=== PATIENT | female | born 1980 | race Caucasian/White ===

== ENCOUNTER → 2022-12-01 | Outpatient (CLI) | payer BC ==
--- NOTE | 2022-12-09 08:22 | MM ---
Reason for Exam: Screening (asymptomatic). Last mammogram was performed 2 year(s) and 11 month(s) ago. Patient History: Menarche at age 13. First Full-Term at age 18. Last menstrual period: 12/01/2022 Risk Values: Jessica 5 year model risk: 0.5%. NCI Lifetime model risk: 6.5%. Prior Study Comparison: 12/05/2019 Bilateral Screening Mammogram, [facility]. Tissue Density: The breast tissue is heterogeneously dense. This may lower the sensitivity of mammography. Findings: Analyzed By CAD. Left breast: Grouped calcifications middle depth posterior nipple line on MLO view and slightly lateral on CC view approximately 6-7 cm from the nipple. Right breast: There is no suspicious group of microcalcifications or new suspicious mass in either breast. Overall Assessment: Incomplete: need additional imaging evaluation, BI-RAD 0 Management: Diagnostic Mammogram of the left breast. [facility] will attempt to contact patient to return for supplemental views and ultrasound if indicated. Patient should continue monthly self-breast exams. A clinical breast exam by your physician is recommended on an annual basis. This exam should not preclude additional follow-up of suspicious palpable abnormalities. Note on Jessica scores and lifetime risk: 1. A Jessica score greater than 3% is considered moderate risk. If this is the case, consider specialist referral to assess eligibility for a risk reducing agent. 2. If overall lifetime risk for the development of breast cancer is 20% or higher, the patient may qualify for future screening with alternating mammogram and breast MRI. Electronically signed and approved by: Guillermo Sauer DO
== END | disposition home or self-care (01) ==
LOC: RADMAMWWP 16:30
PROVIDERS: ATTEND Family Medicine
DX: Z12.31 Encounter for screening mammogram for malignant neoplasm of breast (principal)
CPT/HCPCS: 77063; 77067

== ENCOUNTER → 2022-12-11 | Outpatient (CLI) | payer BC ==
--- NOTE | 2022-12-11 15:27 | MM ---
Reason for Exam: Additional evaluation requested from abnormal screening. Last screening mammogram was performed less than 1 month ago. Patient History: Menarche at age 13. First Full-Term at age 18. Risk Values: Jessica 5 year model risk: 0.5%. NCI Lifetime model risk: 6.5%. Prior Study Comparison: 12/05/2019 Bilateral Screening Mammogram, [facility]. 12/01/2022 Bilateral MG 3D screening mammo w/cad, [facility]. Tissue Density: Left: The breast tissue is heterogeneously dense. This may lower the sensitivity of mammography. Findings: Analyzed By CAD. There are benign coarse calcifications within the left breast. There are a few segmental very fine punctate calcifications within the left breast upper outer aspect. Suspicious clustered calcifications is not evident. Short-term follow-up including magnification views is recommended in 6 months left breast No suspicious groups of microcalcifications, spiculated or lobular masses, architectural distortion or other secondary signs of malignancy are mammographically apparent. Overall Assessment: Probably benign, BI-RAD 3 Management: Diagnostic Mammogram of the left breast in 6 months. A negative mammogram report should not preclude additional follow up of suspicious palpable abnormalities. Patient should continue monthly self breast exam. A clinical breast exam by your physician is recommended on an annual basis and results should be correlated with mammographic findings. Electronically signed and approved by: Jesus Luke D.O. Radiologis
== END | disposition home or self-care (01) ==
LOC: RADMAMWWP 13:44
PROVIDERS: ATTEND Family Medicine
DX: R92.1 Mammographic calcification found on diagnostic imaging of breast (principal)
CPT/HCPCS: 77061; 77065

== ENCOUNTER 2023-02-09 11:19 | Day surgery (SDC) | payer BC ==
--- NOTE | 2023-02-08 11:01 | P.HPOB ---
History of Present Illness H&P Date: 02/08/23 Chief Complaint: Menorrhagia with regular cycle This is a 42 y.o. female, 3, para 3, who presents for dilatation and curettage with hysteroscopy and Novasure endometrial ablation due to menorrhagia with regular cycle. She complains of heavy menses lasting 5 days despite oral contraceptives. Pelvic ultrasound shows uterus measuring 8.3 x 6.5 x 5 cm with endometrium measuring 3 mm. Multiple fibroids, subserosal and intramural, are noted, largest 3 cm on left. OB Hx: . History of 3 vaginal deliveries. [employer] Hx: History of chlamydia, treated years ago. Has history of tubal ligation. Social Hx: . Works for [employer]. Review of Systems Constitutional: Reports fatigue, Denies chills, Denies fever Eyes: denies blurred vision, denies pain Ears, nose, mouth and throat: Denies headache, Denies sore throat Cardiovascular: Denies chest pain, Denies shortness of breath Respiratory: Denies cough Gastrointestinal: Denies abdominal pain, Denies diarrhea, Denies nausea, Denies vomiting Genitourinary: Reports dysmenorrhea, Reports menorrhagia Menstruation: Reports period heavy Musculoskeletal: Denies myalgias Integumentary: Denies pruritus, Denies rash Neurological: Denies numbness, Denies weakness Psychiatric: Reports anxiety, Reports insomnia, Denies depression Past Medical History Past Medical History: Asthma, Cancer, GERD/Reflux, Hypertension Additional Past Medical History / Comment(s): Skin cancer History of Any Multi-Drug Resistant Organisms: None Reported Past Surgical History: Tubal Ligation Additional Past Surgical History / Comment(s): Transoral incisionless fundoplica tion; LEEP Past Anesthesia/Blood Transfusion Reactions: No Reported Reaction Past Psychological History: Anxiety Smoking Status: Never smoker Past Alcohol Use History: Occasional Past Drug Use History: None Reported - Past Family History Father Family Medical History: CVA/TIA Mother History Unknown: Yes Family Medical History: Unable to Obtain Medications and Allergies Home Medications Medication Instructions Recorded Confirmed Type FLUoxetine HCL [PROzac] 20 mg PO QAM 02/05/23 02/05/23 History Losartan [Cozaar] 50 mg PO QAM 02/05/23 02/05/23 History Omeprazole 20 mg PO QAM 02/05/23 02/05/23 History Levonorgestrel/Ethin.estradiol 1 each PO 02/08/23 History [Levora-28 Tablet] Allergies Allergy/AdvReac Type Severity Reaction Status Date / Time No Known Allergies Allergy Verified 02/05/23 09:10 Exam Osteopathic Statement: *. No significant issues noted on an osteopathic structural exam other than those noted in the History and Physical/Consult. HEENT: within normal limits Heart: regular rate and rhythm Lungs: clear to auscultation bilaterally Abdomen: soft, non-tender Pelvic: uterus anteverted, non-tender, no adnexal masses or tendernss Extremities: neg. Rustam's Assessment and Plan (1) Menorrhagia with regular cycle Status: Acute Code(s): N92.0 - EXCESSIVE AND FREQUENT MENSTRUATION WITH REGULAR CYCLE SNOMED Code(s): 100641723 Plan: Proceed with dilatation and curettage with hysteroscopy and Novasure endometrial ablation. I have discussed the risks, benefits, and alternative therapies for the above- mentioned procedure and for both sedation/anesthesia as well as necessary blood products administration, if indicated, as they pertain to this patient. The patient has indicated her understanding and acceptance of the risks and procedures discussed.
[~2023-02-09 11:19] MED LIST: DEXAMETHASONE SOD PHOSPHATE 4 MG/ML 1 ML VIAL IV ONE; HYDROmorphone 0.5 MG/0.5 ML SYRINGE IVP PRN; LACTATED RINGERS 1,000 ML IV SCH; LIDOCAINE 1% (10MG/ML) FOR IV START INTRADERMA PRN; METOCLOPRAMIDE 5 MG/ML 2 ML VIAL IVP PRN; ONDANSETRON 4 MG/2 ML VIAL IVP ONE; Pre Op ABX Message 1 EACH MISC MISCELLANE ONE
[2023-02-09] MEDS ORDERED: hydrALAZINE HCL 20 MG/ML 1 ML VIAL IVP ONE (12:27)
[2023-02-09] MEDS ORDERED: SUCCINYLCHOLINE CHLORIDE 200 MG/10 ML VIAL IV ONE (12:56)
[2023-02-09] MEDS ORDERED: KETOROLAC 15 MG/ML 1 ML VIAL ONE (12:56)
[2023-02-09] MEDS ORDERED: LIDOCAINE 1% INJ 10MG/ML (20 ML MDV) ONE (12:56)
[2023-02-09] MEDS ORDERED: PROPOFOL 10 MG/ML 20 ML VIAL IV ONE (12:56)
[2023-02-09] MEDS ORDERED: ePHEDrine 50 MG/ML 1 ML VIAL ONE (12:56)
[2023-02-09] MEDS ORDERED: MIDAZOLAM 2 MG/2 ML VIAL ONE (12:56)
[2023-02-09] MEDS ORDERED: fentaNYL (PF) 50 MCG/ML 2 ML AMP ONE (12:56)
[2023-02-09] MEDS ORDERED: GLYCOPYRROLATE 0.2 MG/ML 2 ML VIAL ONE (12:56)
--- NOTE | 2023-02-09 13:29 | P.OP ---
Date of Procedure: 02/09/23 Preoperative Diagnosis: Menorrhagia with regular cycle Postoperative Diagnosis: Same Procedure(s) Performed: Dilation and curettage with hysteroscopy and NovaSure endometrial ablation Anesthesia: CAMILLE Surgeon: Nanette Bright Estimated Blood Loss (ml): 5 Pathology: other (Endometrial curettings) Condition: stable Disposition: same day Indications for Procedure: This is a 42 y.o. female, 3, para 3, who presents for dilatation and curettage with hysteroscopy and Novasure endometrial ablation due to menorrhagia with regular cycle. She complains of heavy menses lasting 5 days despite oral contraceptives. Pelvic ultrasound shows uterus measuring 8.3 x 6.5 x 5 cm with endometrium measuring 3 mm. Multiple fibroids, subserosal and intramural, are noted, largest 3 cm on left. Operative Findings: Uterus is retroverted, sounded to 3 cm on her cervix and 9 cm on uterus. No adnexal masses are palpated. Upon hysteroscopy, no specific abnormalities are visualized. No polyps are visualized. Both tubal ostia are noted. A moderate amount of endometrial curettings are obtained. Description of Procedure: The patient is taken to the operating room. She is placed in the dorsal lithotomy position after general anesthesia was given. She is prepped and draped in the normal sterile fashion. Bladder is drained with a catheter and then removed. Pelvic exam is performed under anesthesia. Uterus is found to be retroverted with no adnexal masses. She is placed in slight Trendelenburg position. A right angle retractor is used to visualize the cervix. The anterior lip of the cervix is grasped with an Allis clamp. Cervix is sounded to 3 cm. Uterus is sounded to 9 cm. Cervix is gently dilated with Justice dilators until a hysteroscope could be passed. Hysteroscopy is performed using normal saline. The above noted findings are noted. Next a polyp forceps is introduced. And a minimal amount of tissue was obtained. Next medium-sized size sharp curette was placed. A moderate amount of endometrial curettings were obtained. Next NovaSure array was inserted into the endometrial cavity. Length was set at 6 cm and width was determined to be 2.5 cm. Next cavity assessment was completed and passed on the first try. Next NovaSure array was fired at 83 W for 61 seconds. Next the array was removed, inspected and then discarded. Next the hysteroscope was reinserted. Uniform charring was noted. Pictures were taken. Hysteroscope was removed. Allis clamp was removed from the anterior lip of the cervix. Minimal bleeding was noted. All other instruments removed from the vagina. Sponge counts were correct. Patient is taken to recovery room in stable condition.
[2023-02-09] MEDS ORDERED: ALBUTEROL NEBULIZED 2.5 MG/3 ML INHALATION ONE (13:40)
[2023-02-09 13:55] VITALS: TEMP 97
[2023-02-09 14:29] VITALS: RESP 16
[2023-02-09 15:01] VITALS: BP 162/85; PULSE 85
== END 2023-02-09 14:58 | disposition home or self-care (01) ==
LOC: OR 11:19
PROVIDERS: ATTEND Obstetrics & Gynecology
DX: D25.1 Intramural leiomyoma of uterus (principal); D25.2 Subserosal leiomyoma of uterus; I10 Essential (primary) hypertension; J45.909 Unspecified asthma, uncomplicated; K21.9 Gastro-esophageal reflux disease without esophagitis; Z79.3 Long term (current) use of hormonal contraceptives; Z85.828 Personal history of other malignant neoplasm of skin; Z79.899 Other long term (current) drug therapy
CPT/HCPCS: 81025; 88305; 58563; J2250; J0330; J0360; J1100; J2405; J2001; J3010; J1885; J2704

== ENCOUNTER → 2023-10-16 | Outpatient (CLI) | payer BC ==
--- NOTE | 2023-10-19 22:58 | MM ---
Reason for Exam: Additional evaluation requested from abnormal screening. Last screening mammogram was performed 11 month(s) ago. Patient History: Menarche at age 13. First Full-Term at age 18. Last menstrual period: 10/16/2023 Risk Values: Jessica 5 year model risk: 0.5%. NCI Lifetime model risk: 6.5%. Tissue Density: The breasts are heterogeneously dense, which may obscure small masses. Findings: Analyzed By CAD. The pattern is symmetrical. Benign calcification is within the left breast. Couple small benign-appearing calcifications are within the right breast. Within the right breast some very faint calcifications are adjacent to a benign-appearing round calcification. These are new from comparison. Additional workup with magnification views of the calcifications within the medial right craniocaudal view 4 centimeters from nipple is recommended. Left breast:No suspicious groups of microcalcifications, spiculated or lobular masses, architectural distortion or other secondary signs of malignancy are mammographically apparent. Overall Assessment: Incomplete: need additional imaging evaluation, BI-RAD 0 Management: Diagnostic Mammogram of the right breast. A negative mammogram report should not preclude additional follow up of suspicious palpable abnormalities. Patient should continue monthly self breast exam. A clinical breast exam by your physician is recommended on an annual basis and results should be correlated with mammographic findings. Note on Jessica scores and lifetime risk: 1. A Jessica score greater than 3% is considered moderate risk. If this is the case, consider specialist referral to assess eligibility for a risk reducing agent. 2. If overall lifetime risk for the development of breast cancer is 20% or higher, the patient may qualify for future screening with alternating mammogram and breast MRI. Electronically signed and approved by: Jesus Luke D.O. Radiologis
== END | disposition home or self-care (01) ==
LOC: RADMAMWWP 12:56
PROVIDERS: ATTEND Family Medicine
DX: R92.333 Mammographic heterogeneous density, bilateral breasts (principal); R92.8 Other abnormal and inconclusive findings on diagnostic imaging of breast
CPT/HCPCS: 77062; 77066

== ENCOUNTER 2024-02-02 10:15 | Day surgery (SDC) | payer BC ==
[2024-02-01 10:37] VITALS: BMI 24.8
[~2024-02-02 10:15] MED LIST changes: -DEXAMETHASONE SOD PHOSPHATE 4 MG/ML 1 ML VIAL IV ONE; -HYDROmorphone 0.5 MG/0.5 ML SYRINGE IVP PRN; -LACTATED RINGERS 1,000 ML IV SCH; -METOCLOPRAMIDE 5 MG/ML 2 ML VIAL IVP PRN; -ONDANSETRON 4 MG/2 ML VIAL IVP ONE; -Pre Op ABX Message 1 EACH MISC MISCELLANE ONE
[2024-02-02 10:49] VITALS: TEMP 97.8
[2024-02-02] MEDS: LACTATED RINGERS 1,000 ML IV SCH (10:57)
[2024-02-02] MEDS: IV FLUID CONTINUATION 1,000 ML IV ONE (10:57)
[2024-02-02] MEDS ORDERED: PROPOFOL 10 MG/ML 20 ML VIAL IV ONE (11:12)
--- NOTE | 2024-02-02 11:24 | P.PCN ---
Date of Procedure: 02/02/24 Procedure(s) Performed: BRIEF HISTORY: Patient is a 43-year-old, pleasant, white female skilled for an upper endoscopy as a part of evaluation of chronic epigastric pain for the last 1 year duration. Pain is mostly epigastric area associate with abdominal bloating and early satiety. Has occasional nausea but no emesis. She was treated with Prilosec and Pepcid with no relief. History of TIF procedure in 2018. She is in scheduled for an upper endoscopy to evaluate further. PROCEDURE PERFORMED: Esophagogastroduodenoscopy with biopsy. PREOPERATIVE DIAGNOSIS: Chronic epigastric pain and abdominal bloating of 1 year duration. IV sedation per anesthesia. PROCEDURE: After informed consent was obtained, the patient was brought into the endoscopy unit. IV sedation was administered by Anesthesia under continuous monitoring. Initially the Olympus GIF-140 video endoscope was inserted into the mouth. Esophagus intubated without any difficulty. It was gradually advanced into the stomach and duodenum and carefully examined. The bulb and the second part of the duodenum appeared normal. Biopsies were done from the duodenum to evaluate for celiac disease. The scope at this time was withdrawn to the stomach, adequately insufflated with air, and upon careful examination, mucosa of the antrum, had mild gastritis and biopsies were done from this area. Mucosa of the body, cardia and the fundus appeared normal. The scope was then withdrawn into the esophagus. The GE junction was located at 39 cm from the incisors. There is sutures noted in this area. The esophagus appeared normal. There were no erosions or ulcerations seen biopsies were done from the distal esophagus and the patient tolerated the procedure well. IMPRESSION: 1. Mild antral gastritis. 2. No evidence of esophagitis or peptic ulcer disease. RECOMMENDATIONS: The findings of this examination were discussed with the patient as well as her family. She was advised to follow-up with the biopsy results. She was seen in the office in 2 to 3 weeks..
[2024-02-02 11:46] VITALS: RESP 16
[2024-02-02 11:47] VITALS: BP 134/80; PULSE 56
== END 2024-02-02 12:14 | disposition home or self-care (01) ==
LOC: ORWHC2ENDO 10:15
PROVIDERS: ATTEND Internal Medicine Gastroenterology
DX: R10.13 Epigastric pain
CPT/HCPCS: 43239; 81025; 88305

== ENCOUNTER 2024-09-23 08:31 | Emergency (ER) | payer SELFPAY ==
[2024-09-23 09:11] LABS: Basophils # (A) 0.03 10*3/uL (0.00-0.10); Basophils % (A) 0.4 %; Eosinophils # (A) 0.12 10*3/uL (0.04-0.35); Eosinophils % (A) 1.5 %; HCT 48.1 % (37.2-46.3); HGB 15.7 g/dL (12.0-15.0); Lymphocytes # (A) 1.87 10*3/uL (0.90-5.00); Lymphocytes % (A) 24.1 %; MCH 27.4 pg (27.0-32.0); MCHC 32.6 g/dL (32.0-37.0); MCV 83.8 fL (80.0-97.0); Mean Platelet Volume 11.2 fL (9.5-12.2); Monocytes # (A) 0.59 10*3/uL (0.20-1.00); Monocytes % (A) 7.6 %; Neutrophils # (A) 5.14 10*3/uL (1.80-7.70); Neutrophils % (A) 66.3 %; Platelet Count 276 10*3/uL (140-440); RBC 5.74 10*6/uL (4.10-5.20); RDW 13.4 % (11.5-14.5); WBC 7.76 10*3/uL (4.50-10.00)
[2024-09-23 09:23] LABS: ALT 17 U/L (4-34); AST 19 U/L (14-36); African American GFR (CKD) 80 (>60 ml/min/1.73 sqM); Albumin 4.8 g/dL (3.5-5.0); Alkaline Phosphatase 65 U/L (38-126); Anion Gap 11 mmol/L; Blood Urea Nitrogen 27 mg/dL (7-17); Calcium 10.7 mg/dL (8.4-10.2); Carbon Dioxide 28 mmol/L (22-30); Chloride 99 mmol/L (98-107); Glucose 61 mg/dL (74-99); Magnesium 2.2 mg/dL (1.6-2.3); Non-African American GFR(CKD) 69 (>60 ml/min/1.73 sqM); Sodium 138 mmol/L (137-145); Total Bilirubin 0.4 mg/dL (0.2-1.3)
--- NOTE | 2024-09-23 09:28 | ED ---
General Adult HPI - General Chief complaint: Recheck/Abnormal Lab/Rx Stated complaint: Tingling of Face, Legs, Arms Time Seen by Provider: 09/23/24 08:47 Source: patient, RN notes reviewed, old records reviewed Mode of arrival: ambulatory Limitations: no limitations - History of Present Illness Initial comments: 44-year-old female presenting for evaluation of lightheadedness, diaphoresis, tingling throughout her face bilateral arms and legs. Patient had a recent hospital admission at [facility] for elevated blood pressure. She was started on multiple antihypertensive medications. She took those medications this morning. She has no complaints at the time my evaluation. She did not have any chest pain. No vomiting. She states she had significant workup performed and is not aware of any significant abnormalities besides the elevated blood pressure. - Related Data Home Medications Medication Instructions Recorded Confirmed Losartan/Hydrochlorothiazide 1 tab PO DAILY 02/01/24 02/02/24 [Losartan-Hctz 100-25 mg Tab] Allergies Allergy/AdvReac Type Severity Reaction Status Date / Time No Known Allergies Allergy Verified 09/23/24 08:39 Review of Systems ROS Statement: Those systems with pertinent positive or pertinent negative responses have been documented in the HPI. ROS Other: All systems not noted in ROS Statement are negative. Past Medical History Past Medical History: Asthma, Cancer, GERD/Reflux, Hypertension Additional Past Medical History / Comment(s): Skin cancer, BLOATING AND ABD PAIN History of Any Multi-Drug Resistant Organisms: None Reported Past Surgical History: Tubal Ligation, Uterine Ablation Additional Past Surgical History / Comment(s): Transoral incisionless fundoplication (TIF), LEEP, EGD Past Anesthesia/Blood Transfusion Reactions: No Reported Reaction Past Psychological History: Anxiety Smoking Status: Never smoker Past Alcohol Use History: Rare Past Drug Use History: None Reported - Past Family History Father Family Medical History: CVA/TIA Mother History Unknown: Yes Family Medical History: Unable to Obtain General Exam Limitations: no limitations General appearance: alert, in no apparent distress Head exam: Present: atraumatic, normocephalic Eye exam: Present: normal appearance, PERRL ENT exam: Present: normal exam Neck exam: Present: normal inspection. Absent: tenderness, meningismus Respiratory exam: Present: normal lung sounds bilaterally. Absent: respiratory distress, wheezes Cardiovascular Exam: Present: regular rate, normal rhythm GI/Abdominal exam: Present: soft. Absent: distended, tenderness, guarding Neurological exam: Present: alert, oriented X3, CN II-XII intact. Absent: motor sensory deficit Psychiatric exam: Present: normal affect, normal mood Skin exam: Present: warm, dry, intact. Absent: cyanosis, diaphoretic Course Vital Signs 09/23/24 09/23/24 09/23/24 08:37 09:00 09:20 Temperature 97.7 F Pulse Rate 58 L 54 L Respiratory 20 16 Rate Blood Pressure 173/113 141/87 155/87 O2 Sat by Pulse 99 98 Oximetry 09/23/24 10:04 Temperature 98.3 F Pulse Rate 54 L Respiratory 16 Rate Blood Pressure 137/83 O2 Sat by Pulse 99 Oximetry - Reevaluation(s) Reevaluation #1: 09/23/24 10:46 Patient reevaluated, no further symptoms no complaints. Medical Decision Making - Medical Decision Making Was pt. sent in by a medical professional or institution (, PA, NOODLE CATALYST MAKER, urgent care, hospital, or correction...) When possible be specific @ -No Did you speak to anyone other than the patient for history (EMS, parent, family, police, friend...)? What history was obtained from this source @ -No Did you review nursing and triage notes (agree or disagree)? Why? @ -I reviewed and agree with nursing and triage notes Were old charts reviewed (outside hosp., previous admission, EMS record, old EKG, old radiological studies, urgent care reports/EKG's, correction records)? Report findings @ -No old charts were reviewed Differential Syncope: Valvular disease, hypertrophic cardiomyopathy, pulmonary embolism, tamponade, tachycardia, bradycardia, AR, hypovolemia, hemorrhage, dissection, anemia, intracranial hemorrhage, seizure, hypoglycemia, carbon monoxide poisoning, this is not meant to be an all-inclusive list. EKG interpreted by me (3pts min.). @EKG: Sinus bradycardia rate of 53 ST segment depression and T wave abnormality within the precordial leads and lateral leads IN interval 160, QRS duration 88, QTc 449. No old for comparison, records are being obtained from outside hospital. Repeat EKG at 1027, sinus bradycardia, left ventricular hypertrophy, rate of 55, IN interval 145, QRS duration 90, QTc 455 similar T wave abnormality compared to previous EKG. Both of these EKGs are compared to EKG from [facility] on 520 with similar T wave abnormality. X-rays interpreted by me (1pt min.). @ -[Chest x-ray is clear CT interpreted by me (1pt min.). @ -None done U/S interpreted by me (1pt. min.). @ -None done What testing was considered but not performed or refused? (CT, X-rays, U/S, labs)? Why? @ -None What meds were considered but not given or refused? Why? @ -None Did you discuss the management of the patient with other professionals (professionals i.e. DrOsiel, PA, NOODLE CATALYST MAKER, lab, RT, psych nurse, social media designer, construction trench digger, teacher, flight communications officer, manager of case)? Give summary @ -No Was smoking cessation discussed for >3mins.? @ -No Was critical care preformed (if so, how long)? @ -No Were there social determinants of health that impacted care today? How? (Homelessness, low income, unemployed, alcoholism, drug addiction, transportation, low edu. Level, literacy, decrease access to med. care, half-way, rehab)? @ -No Was there de-escalation of care discussed even if they declined (Discuss DNR or withdrawal of care, Hospice)? DNR status @ -No What co-morbidities impacted this encounter? (DM, HTN, Smoking, COPD, CAD, Cancer, CVA, ARF, Chemo, Hep., AIDS, mental health diagnosis, sleep apnea, mor bid obesity)? @ -[Hypertension with recent hospital admission for elevated blood pressure started on several new medications. Was patient admitted / discharged? Hospital course, mention meds given and route, prescriptions, significant lab abnormalities, going to OR and other pertinent info. @ -44-year-old female with an episode of elevated blood pressure hand diffuse paresthesia similar to 3 days prior where she was seen at outside hospital and had noted to significantly elevated blood pressure. Patient is feeling improved at the time of this evaluation and essentially remains asymptomatic while in the emergency department. Blood sugar is low and this is corrected with food. Chest x-ray is clear. EKG shows diffuse T wave abnormality with some similarity to previous EKG from outside hospital. There is no associated chest pain. Given the EKG changes I did plan to observe this patient overnight however she prefers discharge she is agreeable with repeat cardiac enzyme and repeat EKG these are obtained in the emergency department. Patient is instructed to monitor her blood pressure at home, eat regular meals and maintain hydration. Undiagnosed new problem with uncertain prognosis? @ -No Drug Therapy requiring intensive monitoring for toxicity (Heparin, Nitro, Insulin, Cardizem)? @ -No Were any procedures done? @ -No Diagnosis/symptom? @Hypertension, hypoglycemia, abnormal EKG Acute, or Chronic, or Acute on Chronic? @ -Acute and chronic Uncomplicated (without systemic symptoms) or Complicated (systemic symptoms)? @ -Default Side effects of treatment? @ -No Exacerbation, Progression, or Severe Exacerbation? @ -No Poses a threat to life or bodily function? How? (Chest pain, USA, AR, pneumonia, PE, COPD, DKA, ARF, appy, cholecystitis, CVA, Diverticulitis, Homicidal, Suicidal, threat to staff... and all critical care pts) @Low risk at this time - Lab Data Result diagrams: 09/23/24 09:04 09/23/24 09:04 Lab Results 09/23/24 09/23/24 09/23/24 Range/Units 09:04 09:04 09:04 WBC 7.76 (4.50-10.00) 10*3/uL RBC 5.74 H (4.10-5.20) 10*6/uL Hgb 15.7 H (12.0-15.0) g/dL Hct 48.1 H (37.2-46.3) % MCV 83.8 (80.0-97.0) fL MCH 27.4 (27.0-32.0) pg MCHC 32.6 (32.0-37.0) g/dL Plt Count 276 (140-440) 10*3/uL MPV 11.2 (9.5-12.2) fL Immature Gran % (Auto) 0.1 % Neutrophils % 66.3 % Lymphocytes % 24.1 % Monocytes % 7.6 % Eosinophils % 1.5 % Basophils % 0.4 % Immature Gran # 0.01 (0.00-0.04) 10*3/uL Neutrophils # 5.14 (1.80-7.70) 10*3/uL Lymphocytes # 1.87 (0.90-5.00) 10*3/uL Monocytes # 0.59 (0.20-1.00) 10*3/uL Eosinophils # 0.12 (0.04-0.35) 10*3/uL Basophils # 0.03 (0.00-0.10) 10*3/uL PT 10.2 (10.0-12.5) sec INR 0.9 (<1.2) APTT 23.7 (22.0-30.0) sec Sodium 138 (137-145) mmol/L Potassium 4.0 (3.5-5.1) mmol/L Chloride 99 (98-107) mmol/L Carbon Dioxide 28 (22-30) mmol/L Anion Gap 11 mmol/L BUN 27 H (7-17) mg/dL Creatinine 0.99 (0.52-1.04) mg/dL Est GFR (CKD-EPI)AfAm 80 (>60 ml/min/1.73 sqM) Est GFR (CKD-EPI)NonAf 69 (>60 ml/min/1.73 sqM) Glucose 61 L (74-99) mg/dL POC Glucose (mg/dL) (70-110) mg/dL POC Glu Hand Woodworking Sander ID Calcium 10.7 H (8.4-10.2) mg/dL Magnesium 2.2 (1.6-2.3) mg/dL Total Bilirubin 0.4 (0.2-1.3) mg/dL AST 19 (14-36) U/L ALT 17 (4-34) U/L Alkaline Phosphatase 65 (38-126) U/L Troponin I (0.000-0.034) ng/mL Total Protein 8.0 (6.3-8.2) g/dL Albumin 4.8 (3.5-5.0) g/dL 09/23/24 09/23/24 Range/Units 09:04 10:01 WBC (4.50-10.00) 10*3/uL RBC (4.10-5.20) 10*6/uL Hgb (12.0-15.0) g/dL Hct (37.2-46.3) % MCV (80.0-97.0) fL MCH (27.0-32.0) pg MCHC (32.0-37.0) g/dL Plt Count (140-440) 10*3/uL MPV (9.5-12.2) fL Immature Gran % (Auto) % Neutrophils % % Lymphocytes % % Monocytes % % Eosinophils % % Basophils % % Immature Gran # (0.00-0.04) 10*3/uL Neutrophils # (1.80-7.70) 10*3/uL Lymphocytes # (0.90-5.00) 10*3/uL Monocytes # (0.20-1.00) 10*3/uL Eosinophils # (0.04-0.35) 10*3/uL Basophils # (0.00-0.10) 10*3/uL PT (10.0-12.5) sec INR (<1.2) APTT (22.0-30.0) sec Sodium (137-145) mmol/L Potassium (3.5-5.1) mmol/L Chloride (98-107) mmol/L Carbon Dioxide (22-30) mmol/L Anion Gap mmol/L BUN (7-17) mg/dL Creatinine (0.52-1.04) mg/dL Est GFR (CKD-EPI)AfAm (>60 ml/min/1.73 sqM) Est GFR (CKD-EPI)NonAf (>60 ml/min/1.73 sqM) Glucose (74-99) mg/dL POC Glucose (mg/dL) 98 (70-110) mg/dL POC Glu Hand Woodworking Sander ID [place] Calcium (8.4-10.2) mg/dL Magnesium (1.6-2.3) mg/dL Total Bilirubin (0.2-1.3) mg/dL AST (14-36) U/L ALT (4-34) U/L Alkaline Phosphatase (38-126) U/L Troponin I <0.012 (0.000-0.034) ng/mL Total Protein (6.3-8.2) g/dL Albumin (3.5-5.0) g/dL Disposition Clinical Impression: Hypertension Disposition: HOME SELF-CARE Condition: Fair Instructions (If sedation given, give patient instructions): Hypertension (ED) Additional Instructions: Please take medications as prescribed, please monitor blood pressure closely. Please eat regular meals. Please follow-up with your winding rack operator and primary care provider. Please return to the emergency department with any new or worsening symptoms. Is patient prescribed a controlled substance at d/c from ED?: No Referrals: Silas Haji MD [Primary Care Provider] - 1-2 days Time of Disposition: 11:40
--- NOTE | 2024-09-23 09:43 | XR ---
EXAMINATION TYPE: XR chest 2V DATE OF EXAM: 09/23/2024 CLINICAL INDICATION: Female, 44 years old with history of Dizzy, weakness TECHNIQUE: Frontal and lateral views of the chest are obtained. COMPARISON: None FINDINGS: Overlying EKG leads are present. There is no focal air space opacity, pleural effusion, or pneumothorax seen. The cardiac silhouette size is within normal limits. The osseous structures ar e intact. IMPRESSION: No acute cardiopulmonary process. [facility], , 09/23/2024 9:41 AM
[2024-09-23 09:52] LABS: INR 0.9 (<1.2); Partial Thromboplastin Time 23.7 sec (22.0-30.0); Prothrombin Time 10.2 sec (10.0-12.5)
[2024-09-23] MEDS: SODIUM CHLORIDE 0.9% 1,000 ML IV ONE (10:02)
[2024-09-23 10:06] LABS: Glucose,Whole Blood 98 mg/dL (70-110)
[2024-09-23 11:17] VITALS: BP 114/80; PULSE 62; RESP 18; TEMP 98
== END 2024-09-23 11:58 | disposition home or self-care (01) ==
LOC: EC 08:31
DX: I10 Essential (primary) hypertension (principal); E16.2 Hypoglycemia, unspecified; R00.1 Bradycardia, unspecified; R94.31 Abnormal electrocardiogram [ECG] [EKG]
CPT/HCPCS: 36415; 71046; 80053; 83735; 84484; 85025; 85610; 85730; 93005; 96360; 99284

== ENCOUNTER → 2024-11-18 | Outpatient (CLI) | payer BC ==
--- NOTE | 2024-11-18 12:57 | MM ---
Reason for Exam: Follow-up at short interval from prior study. Last mammogram was performed 1 year(s) and 1 month(s) ago. Patient History: Menarche at age 13. First Full-Term at age 18. Patient has history of breast feeding. Last menstrual period: 11/15/2024 Risk Values: Jessica 5 year model risk: 0.5%. NCI Lifetime model risk: 6.4%. Tissue Density: The breasts are heterogeneously dense, which may obscure small masses. Findings: Analyzed By CAD. No dominant mass. No architectural distortion. No suspicious calcifications. Overall Assessment: Benign, BI-RAD 2 Management: Screening Mammogram of both breasts in 1 year. . Results were given to the patient verbally at the time of exam. Patient should continue monthly self-breast exams. A clinical breast exam by your physician is recommended on an annual basis. This exam should not preclude additional follow-up of suspicious palpable abnormalities. Note on Jessica scores and lifetime risk: 1. A Jessica score greater than 3% is considered moderate risk. If this is the case, consider specialist referral to assess eligibility for a risk reducing agent. 2. If overall lifetime risk for the development of breast cancer is 20% or higher, the patient may qualify for future screening with alternating mammogram and breast MRI. [facility], , 11/18/2024 12:55 PM. Electronically signed and approved by: Silas Ly M.D. Radiologis
== END | disposition home or self-care (01) ==
LOC: RADMAMWWP 12:34
PROVIDERS: ATTEND Family Medicine
DX: R92.8 Other abnormal and inconclusive findings on diagnostic imaging of breast (principal); R92.333 Mammographic heterogeneous density, bilateral breasts
CPT/HCPCS: 77062; 77066

== ENCOUNTER → 2024-11-25 | Outpatient (CLI) | payer BC ==
--- NOTE | 2024-11-25 16:45 | US ---
EXAMINATION TYPE: US thyroid st tissue head/neck DATE OF EXAM: 11/25/2024 COMPARISON: NONE CLINICAL INDICATION: Female, 44 years old with history of E04.9 NONTOXIC GOITER; TECHNIQUE: Grayscale and color Doppler imaging of the thyroid gland. FINDINGS: GLAND SIZE: Right Lobe: 5.1 x 1.2 x 1.9 cm Overall Parenchyma: homogeneous Left Lobe: 3.7 x 0.9 x 1.4 cm Overall Parenchyma: homogeneous Isthmus Thickness: 0.2 cm NODULES RIGHT: # of nodules measured on right: 0 LEFT: # of nodules measured on left: 0 ISTHMUS: # of nodules measured in the isthmus: 0 Bilateral neck scanned, no evidence of lymphadenopathy. Submandibular area scanned due to patients area of concern. Lymph node with irregular cortex seen wit hin right parotid gland = 1.5 x 0.6 x 1.3 cm IMPRESSION: Mildly prominent lymph node with irregular cortex within the right parotid gland. Contrast CT recomme nded. Highest TI-RADS level nodule reported: 2017 ACR TI-RADS LEVEL: TI-RADS assessment score and recommendation for follow-up based on appropriate scoring and treatment protocols. TR1 Benign No FNA TR2 Not suspicious No FNA TR3: If nodule size is ? 2.5 cm, FNA is recommended. If nodule size is ? 1.5 cm, follow-up imaging at 1, 3, and 5 years is recommended. TR4: If nodule size is ? 1.5 cm, FNA is recommended. If nodule size is ? 1.0 cm, follow-up imaging at 1, 2, 3, and 5 years is recommended. TR5: If nodule size is ? 1.0 cm, FNA is recommended. If nodule size is ? 0.5 cm, annual follow-up for up to 5 years is recommended. TR 1 thyroid nodules have a 0.3 % risk of malignancy. TR 2 thyroid nodules have a 1.5 % risk of malignancy. TR 3 thyroid nodules have a 4.8 % risk of malignancy. TR 4 thyroid nodules have a 9.1 % risk of malignancy. TR 5 thyroid nodules have a 35 % risk of malignancy. [email or web address] [facility], , 11/25/2024 4:42 PM
== END | disposition home or self-care (01) ==
LOC: RADUSWWP 15:39
PROVIDERS: ATTEND Nurse Practitioner Adult Health
DX: E04.9 Nontoxic goiter, unspecified (principal)
CPT/HCPCS: 76536